=== PATIENT | female | born 1960 | race Two or more races ===

== ENCOUNTER 2024-10-27 14:30 | Outpatient (AMB) | payer MEDICAID, SELFPAY ==
[2024-10-27 15:05] VITALS: BP 120/77; PULSE 80; RESP 18; TEMP 36.6; O2SAT 97; BMI 32.2
--- NOTE | 2024-10-27 15:05 | ORTHONT_ITS ---
Vital signs 10/27/24 15:05 Height 1.57 m Height Method Stated Weight 80.002 kg Weight Measurement Method Standing Scale BMI 32.2 BP 120/77 Blood Pressure Source Automatic Cuff Blood Pressure Location Right Upper Arm Position Sitting Respiration 18 Pulse 80 Pulse Source Monitor Temp 97.9 F Temp Source Temporal Artery Scan Pulse Oximetry (%) 97 Oxygen Delivery Method Room Air Med/Allergies Allergies & Medications Allergies No Known Allergies Allergy (Verified 10/27/24 15:06) Medication Reconciliation No Known Home Medications 10/27/24 [History Confirmed 10/27/24] meloxicam 7.5 mg tablet 7.5 mg PO QDAY #45 tabs 10/27/24 [Rx] Exam Exam Breathing is nonlabored. Patient has a normal mood and affect. Bilateral extremities were evaluated and demonstrates sensation intact to light touch. Palpable pedal pulses are present. No significant edema is present. Bilateral hips were examined. The patient has no pain with log roll of the hips. Internal rotation to 30 degrees and external rotation to 30 degrees is painless. Negative FADIR. Left knee was examined today. The left knee is in reasonable alignment. Range of motion from 0-120 degrees. Knee is stable to varus and valgus as well as AP translation with <5mm. Patient has a negative McMurrays. There is no pain with patellofemoral compression and no crepitus noted. The knee is nontender to palpation. The right knee was also examined. The right knee is in varus alignment. Range of motion from 0-115 degrees. Knee is stable to varus and valgus as well as AP translation with <5mm. Patient has a negative McMurrays. There is no pain with patellofemoral compression and no crepitus noted. The knee is tender to palpation medially. Assessment and Plan Problem List (1) Arthritis of knee, right: Status: Acute (2) Right knee meniscal tear: Status: Acute Plan: Patient is a pleasant 64-year-old female with right knee pain and a right knee meniscal tear. I do need to see the severity of the arthritis. It sounds like the cortisone injections have been working in the past. We will get new x-rays and discuss different treatment options depending on what that shows Advanced Care Planning Discussion Advance care planning discussed with:: patient Office Procedures GNS Level of Care Nursing/Assessment Patient Status: Established Patient Nursing Assessment/Reassesment: Medication Reconciliation, Update PMH in EMR and Vital Signs Coordination of Care: Complex Care and Chronic Disease 1-5, Education Complex Pt/Fam, Consent,records obtained, informed consent, Results/Orders obtained and Staff clarify orders Established Patient Charge Established Patient Point Assignment: 95 Established Patient Point Charge: EP Level 3 (80-115) MA Intake Visit Data Collection New Patient or Established: Established Patient (seen at [facility] within 3 years) Reason for Visit:: RIGHT KNEE PAIN Seen by Clinical Staff ONLY (RN/MA): No Verbal consent obtained for Telemed visit?: No Scroll Saw Operator Required: No PCP or OBGYN visit in last 3 months: Yes Hx Now: No Do You Feel Safe at Home: Yes Authorities Contacted: N/A Questionairres Past Medical History Past Medical History Have you ever been diagnosed with any of the following: Neurological Problems Seizures: No Cardiology Problems Congestive Heart Failure: No Respiratory Problems Chronic Obstructive Pulmonary Disease (COPD): No Smoking: No Smoking Cessation Counseling: No Smoking Exposure: No Stomache/Intestinal Problems Hepatitis: No Obesity: Yes Genital/Urinary Problems Renal Disease: No Kidney Stones: Yes Reproductive Problems Previous Pregnancies: Yes Endocrine Problems Diabetes Mellitus Type 1: No Diabetes Mellitus Type 2: No Other Problems Hospitalization: Yes (surgery) Shingles: No Blood Transfusions: No Blood Transfusion Reaction: No Anesthesia Reactions: No MRSA: No Chicken Pox: No Cancer: No Subjective Visit Visit for: new patient and knee Immunization / Flu Flu Vaccine in the Last 12 Months: No Flu Vaccine Exclusion Criteria: No Exclusion Criteria History of Present Illness Chief complaint: RIGHT KNEE PAIN Patient is a pleasant 64-year-old female with bilateral knee pain. The pain is worse on the right compared to the left. She has tried injections before. They did work for over 4 months. She has also tried ibuprofen. She was told that she has a meniscal tear Personal History Occupation: CAREGIVER Red flag PMH: BMI BMI Counceling provided: Yes Pain Pain level (0-10): 8 Pain duration: ALL DAY Pain location: inside (medial), outside (lateral), anterior and posterior Pain quality: sharp, dull and aching Pain timing: night, increases with activity and stairs Associated signs & symptoms: numbness Ambulatory data Ambulatory device: none Treatments Number of previous injections: 4 Improvement with previous injections: No Improvement with PT: No Improvement with NSAIDS: no Review of Systems Review of Systems: All systems negative unless otherwise noted in HPI.
--- NOTE | 2024-10-27 15:06 | XR_ITS ---
Examination: Bilateral knees 2 views Right lateral knee left lateral knee 2 views. Right axial knee, left axial knee 2 views Technique: Bilateral AP knees standing single view, bilateral PA knees standing, 30 degrees flexion Standing right lateral knee, left 2 views Right axial knee left axial knee 2 views total 6 views Exam date and time: 2024 1415 hrs. Indications: Bilateral knee pain beginning several years ago. Findings: Advanced narrowing medial joint spaces right and left knee, more severe right knee Significant osteoarthritis patellofemoral joints No patellar dislocations No fractures Impression: Advanced narrowing medial joint spaces right and left knee
== END 2024-10-27 15:16 | disposition home or self-care (01) ==
LOC: HODSRG 14:30
PROVIDERS: PCP Physician Assistant; Referring Provider Physician Assistant; Supervising Provider Orthopaedic Surgery Adult Reconstructive Orthopaedic Surgery; Visit Provider Orthopaedic Surgery Adult Reconstructive Orthopaedic Surgery
DX: M17.11 Unilateral primary osteoarthritis, right knee (principal); S83.206A Unspecified tear of unspecified meniscus, current injury, right knee, initial encounter
CPT/HCPCS: 73564; 99213; G0463

== ENCOUNTER 2024-11-17 13:19 | Outpatient (AMB) | payer MEDICAID, SELFPAY ==
--- NOTE | 2024-11-17 13:25 | PD.ORTHCLVIS ---
Vital signs 11/17/24 13:26 Height 1.57 m Height Method Stated Weight 78.103 kg Weight Measurement Method Standing Scale BMI 31.6 BP 127/76 Blood Pressure Source Automatic Cuff Blood Pressure Location Left Upper Arm Position Sitting Respiration 19 Pulse 84 Pulse Source Monitor Temp 97.6 F Temp Source Temporal Artery Scan Pulse Oximetry (%) 96 Oxygen Delivery Method Room Air Med/Allergies Allergies & Medications Allergies No Known Allergies Allergy (Verified 11/17/24 13:26) Medication Reconciliation meloxicam 7.5 mg tablet 7.5 mg PO QDAY #45 tabs 10/27/24 [Rx Confirmed 11/17/24] Exam Exam Breathing is nonlabored. Patient has a normal mood and affect. Bilateral extremities were evaluated and demonstrates sensation intact to light touch. Palpable pedal pulses are present. No significant edema is present. Bilateral hips were examined. The patient has no pain with log roll of the hips. Internal rotation to 30 degrees and external rotation to 30 degrees is painless. Negative FADIR. Left knee was examined today. The left knee is in reasonable alignment. Range of motion from 0-120 degrees. Knee is stable to varus and valgus as well as AP translation with <5mm. Patient has a negative McMurrays. There is no pain with patellofemoral compression and no crepitus noted. The knee is nontender to palpation. The right knee was also examined. The right knee is in varus alignment. Range of motion from 0-115 degrees. Knee is stable to varus and valgus as well as AP translation with <5mm. Patient has a negative McMurrays. There is no pain with patellofemoral compression and no crepitus noted. The knee is tender to palpation medially. Bilateral knee x-rays were reviewed. This demonstrates complete joint space narrowing medially and advanced joint space narrowing of both knees. There are osteophytes present and varus deformity Assessment and Plan Problem List (1) Arthritis of knee, right: Status: Acute (2) Right knee meniscal tear: Status: Acute Plan: Patient is a pleasant 64-year-old female with right knee pain and a right knee meniscal tear. She also has significant arthritis of the right knee. We discussed that the treatment would be a total knee replacement. She is failed cortisone injections in the past and has tried physical therapy. She would like to get hyaluronic acid injection. We told her that insurance usually does not typically cover it. She is working on changing her insurance and she is now Medicare eligible. We will see her back on an as-needed basis Advanced Care Planning Discussion Advance care planning discussed with:: patient Office Procedures GNS Level of Care Nursing/Assessment Patient Status: Established Patient Nursing Assessment/Reassesment: Medication Reconciliation, Update PMH in EMR and Vital Signs Coordination of Care: Complex Care and Chronic Disease 1-5, Education Complex Pt/Fam, Consent,records obtained, informed consent, Results/Orders obtained and Staff clarify orders Established Patient Charge Established Patient Point Assignment: 95 Established Patient Point Charge: EP Level 3 (80-115) MA Intake Visit Data Collection New Patient or Established: Established Patient (seen at [facility] within 3 years) Reason for Visit:: XRAY RESULTS BL KNEE Seen by Clinical Staff ONLY (RN/MA): No Verbal consent obtained for Telemed visit?: No Asset Protection Specialist Required: No PCP or OBGYN visit in last 3 months: Yes Hx Now: No Do You Feel Safe at Home: Yes Authorities Contacted: N/A Questionairres Past Medical History Past Medical History Have you ever been diagnosed with any of the following: Neurological Problems Seizures: No Cardiology Problems Congestive Heart Failure: No Respiratory Problems Chronic Obstructive Pulmonary Disease (COPD): No Smoking: Yes (20 YEARS) Smoking Cessation Counseling: No Smoking Exposure: Yes Stomache/Intestinal Problems Hepatitis: No Obesity: Yes Genital/Urinary Problems Renal Disease: No Kidney Stones: Yes Reproductive Problems Previous Pregnancies: Yes Endocrine Problems Diabetes Mellitus Type 1: No Diabetes Mellitus Type 2: No Other Problems Hospitalization: Yes (surgery) Shingles: No Blood Transfusions: No Blood Transfusion Reaction: No Anesthesia Reactions: No MRSA: No Chicken Pox: No Cancer: No Subjective Visit Visit for: follow up visit, knee (BILATERAL) and x-rays (RESULTS) Immunization / Flu Flu Vaccine in the Last 12 Months: No Flu Vaccine Exclusion Criteria: No Exclusion Criteria History of Present Illness Chief complaint: RIGHT KNEE PAIN Patient is a pleasant 64-year-old female with bilateral knee pain. The pain is worse on the right compared to the left. She has tried injections before. They did work for over 4 months. She has also tried ibuprofen. She was told that she has a meniscal tear. 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
[2024-11-17 13:26] VITALS: BP 127/76; PULSE 84; RESP 19; TEMP 36.4; O2SAT 96; BMI 31.6
== END 2024-11-17 14:09 | disposition home or self-care (01) ==
PROVIDERS: PCP Physician Assistant; Referring Provider Physician Assistant; Supervising Provider Orthopaedic Surgery Adult Reconstructive Orthopaedic Surgery; Visit Provider Orthopaedic Surgery Adult Reconstructive Orthopaedic Surgery
DX: M17.11 Unilateral primary osteoarthritis, right knee (principal); M25.561 Pain in right knee; S83.206D Unspecified tear of unspecified meniscus, current injury, right knee, subsequent encounter; X58.XXXD Exposure to other specified factors, subsequent encounter
CPT/HCPCS: 99213; G0463

== ENCOUNTER 2025-02-04 11:01 | Outpatient (AMB) | payer MEDICARE, MEDICAID, SELFPAY ==
--- NOTE | 2025-02-04 11:27 | PD.ORTHCLVIS ---
Vital signs 02/04/25 11:37 Height 1.57 m Height Method Stated Weight 78.528 kg Weight Measurement Method Standing Scale BMI 31.8 BP 105/65 Blood Pressure Source Automatic Cuff Blood Pressure Location Right Upper Arm Position Sitting Respiration 18 Pulse 80 Pulse Source Monitor Pulse Oximetry (%) 96 Oxygen Delivery Method Room Air Med/Allergies Allergies & Medications Allergies No Known Allergies Allergy (Verified 02/04/25 11:38) Medication Reconciliation meloxicam 7.5 mg tablet 7.5 mg PO QDAY #45 tabs 10/27/24 [Rx Confirmed 02/04/25] Exam Exam Breathing is nonlabored. Patient has a normal mood and affect. Bilateral extremities were evaluated and demonstrates sensation intact to light touch. Palpable pedal pulses are present. No significant edema is present. Bilateral hips were examined. The patient has no pain with log roll of the hips. Internal rotation to 30 degrees and external rotation to 30 degrees is painless. Negative FADIR. Left knee was examined today. The left knee is in reasonable alignment. Range of motion from 0-120 degrees. Knee is stable to varus and valgus as well as AP translation with <5mm. Patient has a negative McMurrays. There is no pain with patellofemoral compression and no crepitus noted. The knee is nontender to palpation. The right knee was also examined. The right knee is in varus alignment. Range of motion from 0-115 degrees. Knee is stable to varus and valgus as well as AP translation with <5mm. Patient has a negative McMurrays. There is no pain with patellofemoral compression and no crepitus noted. The knee is tender to palpation medially. Bilateral knee x-rays were reviewed. This demonstrates complete joint space narrowing medially and advanced joint space narrowing of both knees. There are osteophytes present and varus deformity Assessment and Plan Problem List (1) Arthritis of knee, right: Status: Acute (2) Right knee meniscal tear: Status: Acute Plan: Patient is a pleasant 64-year-old female with right knee pain and a right knee meniscal tear. She also has significant arthritis of the right knee. We discussed that the treatment would be a total knee replacement. She has failed cortisone injections in the past and has tried physical therapy. She has also tried NSAIDS The nature and purpose of the total knee replacement, alternative method(s) of treatment, the material risks involved, and the possibility of complications were fully explained to the patient. The patient does NOT have any of the following contraindications to TKA: - Active infection of the knee joint, OR - Active systemic bacteremia, OR - Active skin infection or open wound at surgical site, OR - Neuropathic arthritis, OR - Severe, rapidly progressive neurological disease, OR - Severe medical condition that makes risks of surgery outweigh the potential benefit The patient was told the most common risks and complications associated with a total knee replacement include, but are not limited to: blood clots in the leg, fatal pulmonary embolism, dislocation of the prosthesis, intraoperative and postoperative fractures of the femur or tibia, infection, failure of the prosthesis or grafting materials, complications from anesthesia, reactions to blood transfusions, postoperative leg length inequality, instability of the knee replacement, nerve damage or injury, vascular injury, delayed wound healing, infection, other injury or even . In addition, there are risks associated with anesthesia given during this operation. Also, the patient was told that after undergoing a total knee replacement there may still be persistent pain or disability. The patient was informed that the success of this operation in part depends upon the mechanical devices which are going to be implanted and that these devices can fail or malfunction, and may need to be repaired or replaced and there are no guarantees as to the longevity of this device or its parts and that it or its parts could fail prematurely. The patient was also notified that during the course of surgery, there may be a need to use bone graft from donors, and that any bone graft used will be carefully screened for communicable diseases, including AIDS, hepatitis, Juan-Creutzfeldt, or other diseases, but despite the screening procedures, there is a small chance that they could contract one of these diseases. Finally, the patient was asked to follow completely and fully with all advice and recommended treatments, and that recovery and ultimate outcome are affected by their compliance with recommended treatment. We discussed the risks, benefits and treatment alternatives, and the patient is interested in proceeding with surgery. We will try to set this up as expeditiously as possible. Advanced Care Planning Discussion Advance care planning discussed with:: patient Office Procedures GNS Level of Care Nursing/Assessment Patient Status: Established Patient Nursing Assessment/Reassesment: Medication Reconciliation, Update PMH in EMR and Vital Signs Coordination of Care: Complex Care and Chronic Disease 1-5, Education Complex Pt/Fam, Consent,records obtained, informed consent, 2-3 Insurance Autorizations needed, Lab and Imaging orders, Results/Orders obtained and Staff clarify orders Established Patient Charge Established Patient Point Assignment: 130 Established Patient Point Charge: EP Level 4 (120-155) MA Intake Visit Data Collection New Patient or Established: Established Patient (seen at [facility] within 3 years) Reason for Visit:: XRAY RESULTS BL KNEE Seen by Clinical Staff ONLY (RN/MA): No Verbal consent obtained for Telemed visit?: No Spraying Machine Operator Required: No PCP or OBGYN visit in last 3 months: Yes Hx Now: No Do You Feel Safe at Home: Yes Authorities Contacted: N/A Questionairres Past Medical History Past Medical History Have you ever been diagnosed with any of the following: Neurological Problems Seizures: No Cardiology Problems Congestive Heart Failure: No Respiratory Problems Chronic Obstructive Pulmonary Disease (COPD): No Smoking: Yes (20 YEARS) Smoking Cessation Counseling: No Smoking Exposure: Yes Stomache/Intestinal Problems Hepatitis: No Obesity: Yes Genital/Urinary Problems Renal Disease: No Kidney Stones: Yes Reproductive Problems Previous Pregnancies: Yes Endocrine Problems Diabetes Mellitus Type 1: No Diabetes Mellitus Type 2: No Other Problems Hospitalization: Yes (surgery) Shingles: No Blood Transfusions: No Blood Transfusion Reaction: No Anesthesia Reactions: No MRSA: No Chicken Pox: No Cancer: No Subjective Visit Visit for: follow up visit, knee (BILATERAL) and x-rays (RESULTS) Immunization / Flu Flu Vaccine in the Last 12 Months: No Flu Vaccine Exclusion Criteria: No Exclusion Criteria History of Present Illness Chief complaint: RIGHT KNEE PAIN Patient is a pleasant 64-year-old female with bilateral knee pain. The pain is worse on the right compared to the left. She has tried injections before. They did work for over 4 months. She has also tried ibuprofen. She was told that she has a meniscal tear. 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
[2025-02-04 11:37] VITALS: BP 105/65; PULSE 80; RESP 18; O2SAT 96; BMI 31.8
== END 2025-02-04 11:53 | disposition home or self-care (01) ==
PROVIDERS: PCP Physician Assistant; Referring Provider Physician Assistant; Supervising Provider Orthopaedic Surgery Adult Reconstructive Orthopaedic Surgery; Visit Provider Orthopaedic Surgery Adult Reconstructive Orthopaedic Surgery
DX: M17.11 Unilateral primary osteoarthritis, right knee (principal); S83.206D Unspecified tear of unspecified meniscus, current injury, right knee, subsequent encounter; X58.XXXD Exposure to other specified factors, subsequent encounter; M25.561 Pain in right knee
CPT/HCPCS: 99214; G0463

== ENCOUNTER → 2025-03-06 | Outpatient (CLI) | payer MEDICARE, MEDICAID, SELFPAY ==
--- NOTE | 2025-03-06 08:00 | XR_ITS ---
Examination: MRI left hand, without contrast Date and time of exam: March 06, 2025, 0911 hrs. Indications: Patient fell 2014 with injury to the hand, persistent and pain including especially the thumb Technique: Multiple axial sagittal and coronal images of the left hand have been obtained with the Siemens high-resolution 1.5 Shira MRI scanner. Images obtained include T2-weighted fat-suppressed sagittal sections, TR 3500, TE 46, T2 weighted coronal fat suppressed images, TR 3050, TE 84, T2-weighted transverse fat suppressed images, TR 3260, TE 63, proton density transverse images, TR 4720 TE 46, and T1 weighted coronal images, TR 560, TE 13. Findings: Intact triangular fibrocartilage. No bone contusion, marrow edema or occult fracture. No avascular necrosis. Thickened ulnar collateral ligament of the thumb but the ligament is intact Mild osteoarthritis first carpometacarpal joint. Flexor tendons intact, no annular hans tear Normal median nerve in the wrist Extensor tendons intact no tendinitis No ganglion cyst Impression: Thickened ulnar collateral ligament of the thumb but the ligament is intact, strain appearance No bone contusion, marrow edema or occult fracture Mild osteoarthritis first carpometacarpal joint Negative for ganglion cyst Plain films of the hand would be helpful for correlation
== END | disposition home or self-care (01) ==
LOC: SMRI 08:08
PROVIDERS: PCP Nurse Practitioner Family; Referring Provider Nurse Practitioner Family; Visit Provider Nurse Practitioner Family
DX: M79.645 Pain in left finger(s) (principal); M18.12 Unilateral primary osteoarthritis of first carpometacarpal joint, left hand; S69.92XS Unspecified injury of left wrist, hand and finger(s), sequela; W19.XXXS Unspecified fall, sequela
CPT/HCPCS: 73218

== ENCOUNTER 2025-03-18 12:47 | Outpatient (AMB) | payer MEDICARE, MEDICAID, SELFPAY ==
[2025-03-18 13:02] VITALS: BP 113/72; PULSE 91; RESP 18; TEMP 36.7; O2SAT 95; BMI 31.4
--- NOTE | 2025-03-18 13:02 | ORTHONT_ITS ---
Vital signs 03/18/25 13:02 Height 1.57 m Height Method Measured Weight 77.621 kg Weight Measurement Method Standing Scale BMI 31.4 BP 113/72 Blood Pressure Source Automatic Cuff Blood Pressure Location Left Upper Arm Position Sitting Respiration 18 Pulse 91 Pulse Source Monitor Temp 98.1 F Temp Source Temporal Artery Scan Pulse Oximetry (%) 95 Oxygen Delivery Method Room Air Med/Allergies Allergies & Medications Allergies No Known Allergies Allergy (Verified 03/18/25 13:03) Medication Reconciliation meloxicam 7.5 mg tablet 7.5 mg PO QDAY #45 tabs 10/27/24 [Rx Confirmed 03/18/25] Exam Exam Breathing is nonlabored. Patient has a normal mood and affect. Bilateral extremities were evaluated and demonstrates sensation intact to light touch. Palpable pedal pulses are present. No significant edema is present. Bilateral hips were examined. The patient has no pain with log roll of the hips. Internal rotation to 30 degrees and external rotation to 30 degrees is painless. Negative FADIR. Left knee was examined today. The left knee is in reasonable alignment. Range of motion from 0-120 degrees. Knee is stable to varus and valgus as well as AP translation with <5mm. Patient has a negative McMurrays. There is no pain with patellofemoral compression and no crepitus noted. The knee is nontender to palpation. The right knee was also examined. The right knee is in varus alignment. Range of motion from 0-115 degrees. Knee is stable to varus and valgus as well as AP translation with <5mm. Patient has a negative McMurrays. There is no pain with patellofemoral compression and no crepitus noted. The knee is tender to palpation medially. Bilateral knee x-rays were reviewed. This demonstrates complete joint space na rrowing medially and advanced joint space narrowing of both knees. There are osteophytes present and varus deformity Assessment and Plan Problem List (1) Arthritis of knee, right: Status: Acute (2) Right knee meniscal tear: Status: Acute Plan: Patient is a pleasant 64-year-old female with right knee pain and a right knee meniscal tear. She also has significant arthritis of the right knee. We discussed that the treatment would be a total knee replacement. She has failed cortisone injections in the past and has tried physical therapy. She has also tried NSAIDS The nature and purpose of the total knee replacement, alternative method(s) of treatment, the material risks involved, and the possibility of complications were fully explained to the patient. The patient does NOT have any of the following contraindications to TKA: - Active infection of the knee joint, OR - Active systemic bacteremia, OR - Active skin infection or open wound at surgical site, OR - Neuropathic arthritis, OR - Severe, rapidly progressive neurological disease, OR - Severe medical condition that makes risks of surgery outweigh the potential benefit The patient was told the most common risks and complications associated with a total knee replacement include, but are not limited to: blood clots in the leg, fatal pulmonary embolism, dislocation of the prosthesis, intraoperative and postoperative fractures of the femur or tibia, infection, failure of the prosthesis or grafting materials, complications from anesthesia, reactions to blood transfusions, postoperative leg length inequality, instability of the knee replacement, nerve damage or injury, vascular injury, delayed wound healing, infection, other injury or even . In addition, there are risks associated with anesthesia given during this operation. Also, the patient was told that after undergoing a total knee replacement there may still be persistent pain or disability. The patient was informed that the success of this operation in part depends upon the mechanical devices which are going to be implanted and that these devices can fail or malfunction, and may need to be repaired or replaced and there are no guarantees as to the longevity of this device or its parts and that it or its parts could fail prematurely. The patient was also notified that during the course of surgery, there may be a need to use bone graft from donors, and that any bone graft used will be carefully screened for communicable diseases, including AIDS, hepatitis, Juan-Creutzfeldt, or other diseases, but despite the screening procedures, there is a small chance that they could contract one of these diseases. Finally, the patient was asked to follow completely and fully with all advice and recommended treatments, and that recovery and ultimate outcome are affected by their compliance with recommended treatment. We discussed the risks, benefits and treatment alternatives, and the patient is interested in proceeding with surgery. We will try to set this up as expeditiously as possible. Advanced Care Planning Discussion Advance care planning discussed with:: patient Office Procedures GNS Level of Care Nursing/Assessment Patient Status: Established Patient Nursing Assessment/Reassesment: Medication Reconciliation, Update PMH in EMR and Vital Signs Coordination of Care: Complex Care and Chronic Disease 1-5, Education Complex Pt/Fam, Consent,records obtained, informed consent, Results/Orders obtained and Staff clarify orders Established Patient Charge Established Patient Point Assignment: 95 Established Patient Point Charge: EP Level 3 (80-115) MA Intake Visit Data Collection New Patient or Established: Established Patient (seen at [facility] within 3 years) Reason for Visit:: PRE OP RIGHT TKA/MEDICAL CLEARANCE Seen by Clinical Staff ONLY (RN/MA): No Verbal consent obtained for Telemed visit?: No Livestock Yard Supervisor Required: No PCP or OBGYN visit in last 3 months: Yes Hx Now: No Do You Feel Safe at Home: Yes Authorities Contacted: N/A Questionairres Past Medical History Past Medical History Have you ever been diagnosed with any of the following: Neurological Problems Seizures: No Cardiology Problems Congestive Heart Failure: No Respiratory Problems Chronic Obstructive Pulmonary Disease (COPD): No Smoking: Yes (20 YEARS) Smoking Cessation Counseling: No Smoking Exposure: Yes Stomache/Intestinal Problems Hepatitis: No Obesity: Yes Genital/Urinary Problems Renal Disease: No Kidney Stones: Yes Reproductive Problems Previous Pregnancies: Yes Endocrine Problems Diabetes Mellitus Type 1: No Diabetes Mellitus Type 2: No Other Problems Hospitalization: Yes (surgery) Shingles: No Blood Transfusions: No Blood Transfusion Reaction: No Anesthesia Reactions: No MRSA: No Chicken Pox: No Cancer: No Subjective Visit Visit for: follow up visit and knee Immunization / Flu Flu Vaccine in the Last 12 Months: No Flu Vaccine Exclusion Criteria: No Exclusion Criteria History of Present Illness Chief complaint: RIGHT KNEE PAIN PRE OP RIGHT TKA/MEDICAL CLEARANCE Patient is a pleasant 64-year-old female with bilateral knee pain. The pain is worse on the right compared to the left. She has tried injections before. They did work for over 4 months. She has also tried ibuprofen. She was told that she has a meniscal tear. She had a recent right knee injection but it did not work for more than a month Personal History Occupation: CAREGIVER Red flag PMH: smoker BMI Counceling provided: Yes Pain Pain level (0-10): 0 Pain duration: ALL DAY Pain location: inside (medial), outside (lateral), anterior and posterior Pain quality: sharp, dull and aching Pain timing: night, increases with activity and stairs Associated signs & symptoms: numbness Ambulatory data Ambulatory device: walker and none Treatments Number of previous injections: 2 (2 WEEKS AGO WITH PCP) Improvement with previous injections: Yes Improvement with PT: No Improvement with NSAIDS: no Review of Systems Review of Systems: All systems negative unless otherwise noted in HPI.
== END 2025-03-18 13:23 | disposition home or self-care (01) ==
LOC: HODSRG 12:47
PROVIDERS: PCP Nurse Practitioner Family; Referring Provider Nurse Practitioner Family; Supervising Provider Orthopaedic Surgery Adult Reconstructive Orthopaedic Surgery; Visit Provider Orthopaedic Surgery Adult Reconstructive Orthopaedic Surgery
DX: M17.11 Unilateral primary osteoarthritis, right knee (principal); S83.206D Unspecified tear of unspecified meniscus, current injury, right knee, subsequent encounter; X58.XXXD Exposure to other specified factors, subsequent encounter; M25.561 Pain in right knee; E66.9 Obesity, unspecified; Z68.31 Body mass index [BMI] 31.0-31.9, adult
CPT/HCPCS: 99213; G0463

== ENCOUNTER → 2025-03-22 | Outpatient (CLI) | payer MEDICARE, MEDICAID, SELFPAY ==
--- NOTE | 2025-03-22 | XR_ITS ---
Examination: CT right lower extremity, without contrast. 2-D sagittal reconstructions. 2-D coronal reconstructions. 3-D reconstructions. Date and time of exam:March 22, 2025 1221 hours INDICATIONS: Diagnosis unilateral right knee osteoarthritis, knee pain 18 months CTDI: vol (mGy):9.49 DLP: (mGycm):657 Technique: Multiple 1.25 mm axial sections of the right lower extremity without intravenous contrast have been obtained. 2-D sagittal and coronal reconstructions have been obtained. 3-D reconstructions have been obtained. Low dose protocols were performed. One or more of the following dose reduction techniques were used; automated exposure control, adjustment of the mA and/or KV according to patient size, use of iterative reconstruction technique. Findings: Mild narrowing right hip joint No hip fracture or dislocation No avascular necrosis Advanced narrowing medial joint space right knee Significant osteoarthritis lateral patellofemoral joints No fracture IMPRESSION: Advanced narrowing medial joint space right knee
== END | disposition home or self-care (01) ==
PROVIDERS: PCP Nurse Practitioner Family; Referring Provider Orthopaedic Surgery Adult Reconstructive Orthopaedic Surgery; Visit Provider Orthopaedic Surgery Adult Reconstructive Orthopaedic Surgery
DX: M25.861 Other specified joint disorders, right knee (principal)
CPT/HCPCS: 73700

== ENCOUNTER 2025-03-26 15:53 | Observation (INO) | payer MEDICARE, MEDICAID, SELFPAY ==
[2025-03-23 09:16] VITALS: BMI 31.6
[2025-03-23 10:22] LABS: Basophils # (Auto) 0.0 Thou/mm3 (0.0-0.2); Basophils % (Auto) 0 % (0-2.5); Eosinophils # (Auto) 0.2 Thou/mm3 (0.0-0.5); Eosinophils % (Auto) 1 % (0-10); Hematocrit 43.9 % (36.0-46.0); Hemoglobin 15.2 g/dL (12.0-16.0); Immature Granulocytes Auto 0.05 Thou/mm3 (0.00-0.00); Lymphocytes # (Auto) 4.3 Thou/mm3 (1.0-4.8); Lymphocytes % (Auto) 33 % (10-50); Mean Corpuscular HGB Conc 34.6 g/dl (31.0-37.0); Mean Corpuscular Hemoglobin 33.9 pg (25.0-35.0); Mean Corpuscular Volume 98 fL (80-100); Monocytes # (Auto) 1.0 Thou/mm3 (0.0-0.8); Monocytes % (Auto) 8 % (0-12); Neutrophils # (Auto) 7.4 Thou/mm3 (1.8-7.7); Neutrophils % (Auto) 57 % (37-80); Nucleated Red Blood Cell # 0.00 Thou/mm3 (0.00-0.00); Nucleated Red Blood Cell % 0 /100 WBC (0); Platelet Count 443 Thou/mm3 (140-440); RDW Standard Deviation 47.3 fL (36.4-46.3); Red Blood Count 4.49 Miln/mm3 (4.00-5.20); White Blood Count 13.0 Thou/mm3 (3.6-11.0)
[2025-03-23 10:32] LABS: Alanine Aminotransferase 30 U/L (10-49); Albumin, Serum 4.2 gm/dL (3.4-4.8); Albumin/Globulin Ratio 1.6 (1.2-2.2); Alkaline Phosphatase 116 U/L (46-116); Anion Gap 5 (7-16); Aspartate Amino Transferase 28 U/L (0-34); BUN/Creatinine Ratio 11 Ratio (12-20); Bilirubin,Total 0.2 mg/dL (0.3-1.2); Blood Urea Nitrogen 8 mg/dL (9-23); Calcium 9.0 mg/dL (8.3-10.6); Calcium (Corrected) 9.0 mg/dL (8.5-10.1); Carbon Dioxide 28.6 mMol/L (20.0-31.0); Chloride 109 mMol/L (98-107); Creatinine (Component) 0.7 mg/dL (0.6-1.3); Estimated Creatinine Clearance 77.7 mL/min (>60); Globulin 2.6 gm/dL (2.3-3.5); Glucose 78 mg/dL (74-106); Osmolality,Calculated 282 (275-295); Potassium 4.1 mMol/L (3.4-5.1); Sodium 143 mMol/L (136-145); Total Protein 6.8 gm/dL (5.7-8.2); eGFR > 60 See Note
[2025-03-23 10:33] LABS: INR 1.0 (0.9-1.3); Partial Thromboplastin Time 30.5 Seconds (22.0-36.0); Prothrombin Time 10.7 Seconds (9.0-12.2)
--- NOTE | 2025-03-24 07:26 | SUR.PREOP ---
WBC 13, Dr Pérez notified and Ok to proceed with surgery.
[2025-03-26] VITALS (22 sets, daily range): BP systolic 107–154; BP diastolic 63–101; PULSE 66–83; RESP 12–20; TEMP 36.1–36.9; O2SAT 94–98; BMI 31.0
[2025-03-26] MEDS: MELOXICAM 7.5 MG TABLET PO (07:30)
[2025-03-26] MEDS: PREGABALIN 75 MG CAPSULE PO (07:30)
[2025-03-26] MEDS: ACETAMINOPHEN 325 MG TABLET 650 MG PO (07:30)
--- NOTE | 2025-03-26 07:45 | SUR.PREOP ---
Patient expressed gratitude for prayer before their procedure.
--- NOTE | 2025-03-26 12:34 | ESOP_ITS ---
Date of Procedure 03/26/25 Pre Op Diagnosis right knee osteoarthritis Post Op Diagnosis right knee osteoarthritis Procedure right total knee replacement daniele Findings full thickness cartilage loss and osteophytes Procedure Description Indication: The patient is a 64 year old who has a long history of left knee pain. X-rays show degenerative arthritis involving the knee. Over the past several years the patient has had increasing pain, progressive limitation in function. He has failed conservative measures including activity modification, physical therapy, injections, anti-inflammatories, and assistive devices. After a lengthy discussion of the risks and benefits, the patient presents now for total knee replacement. The nature and purpose of the total knee replacement, alternative method(s) of treatment, the material risks involved, and the possibility of complications were fully explained to the patient. The patient was told the most common risks and complications associated with a total knee replacement include, but are not limited to blood clots in the leg, fatal pulmonary embolism, dislocation of the prosthesis, intraoperative and postoperative fractures of the femur or tibia, infection, failure of the prosthesis or grafting materials, complications from anesthesia, reactions to blood transfusions, postoperative leg length inequality, instability of the knee replacement, nerve damage or injury, vascular injury, delayed wound healing, infections, other injury or even . In addition, there are risks associated with anesthesia given during this operation, temporary or permanent numbness on the skin lateral to the incision can be a complication unique to total knee surgery, and kneeling can be painful after knee replacement surgery. Also, the patient was told that after undergoing a total knee replacement there may still be pain or disability. We discussed with the patient that we will be using a robot-assisted technology. We discussed that there is a possibility of converting to manual instrumentation. The patient was informed that the success of this operation in part depends upon the mechanical devices which are going to be implanted and that these devices can fail or malfunction, and may need to be repaired or replaced and there are no guarantees as to the longevity of this device or its part and that it or its parts could fail prematurely. Finally, the patient was asked to follow completely and fully with all advice and recommended treatments, and that recovery and ultimate outcome are affected by their compliance with recommended treatment. Surgical technique: Patient was marked and consented in the pre-operative area. The patient was brought to the operating room and placed on the operating table in a supine position. Prior to positioning, a timeout procedure was performed between the surgeon, the anesthesiologist, and the nursing staff where the patient and the operative side were identified and confirmed. After adequate general anesthetic was obtained, the left lower extremity was prepped and draped in the usual sterile fashion. A weight based dose of Cefazolin were administered within 1 hour prior to incision. The robot was preregistered and calirated before the incision. The extremity was exsanguinated with an esmarch badge and tourniquet inflated to 250mmHg. A midline incision was made. A median parapatellar arthrotomy was made. The patella was subluxed laterally. A medial release was performed to expose the medial tibia. His femoral and tibial pins were placed through an intra incisional manner for both cases. Every effort was made to ensure that the distalmost aspect of the pin was hung in the second cortex. The arrays were then tightened several times to ensure that it was fixed for the remainder of the case. Both femoral and tibial checkpoints were then placed. We then went through the registration process of the bone. We then assessed the knee deformity and attempted to correct it. We also used the robot to aid in judging laxity in both extension and flexion. Final based on laxity and alignment we changed the preoperative assessment to obtain proper proper implant positioning and to correct deformity. Attention was then placed to the tibia. We made a tibial cut using the robot ensuring that both the MCL and the patella tendon were protected with retractors. We then went to the femur and made the posterior cut followed by the anterior cut and the anterior chamfer. The bone was then removed and we made a distal femur cut and a posterior chamfer cut. We verified all cuts. A trial reduction was performed with a size 3 femoral component and a size 2 keeled tibial component. The patella tracked centrally, and no lateral retinacular release was necessary. The trial implants were removed. The arrays, pins, and checkpoints were all removed. We performed a verification that all pins were removed. The cut bone surfaces were lavaged. A size 3 left femoral component, a size 2 keeled tibial component were impacted into position. The knee was felt to be well balanced in the sagittal and coronal plane. The final [2x12] mm cruciate- substituting articular insert was impacted into the tibial tray. The knee was brought out to full extension, flexed up to 120 degrees. It was stable to varus and valgus stress and appropriately balanced in flexion and extension. The wounds were copiously irrigated following deflation of tourniquet. The medial retinaculum was reapproximated with #1 vicryl and quill. The subcutaneous tissues were closed with 0 and 2-0 interrupted Vicryl. The skin was closed with 3-0 Monofilament V loc suture. A sterile dressing was applied. The patient was transferred to a bed and brought to recovery in stable condition. The patient tolerated the procedure well. There were no intraoperative complications. Sponge and needle counts were correct times 2. As the attending surgeon, Guanako corbin I was present and performed the entire operation. Grafts/Implants Size 3 CR Femur Size 2 Tibia 10mm poly CS Anesthesia spinal Drains none Implants liane Pathology / specimen None Pathology comment: none Estimated Blood Loss 150 Condition Stable Disposition same day Surgeon Gurinder Pérez MD Surgical Staff Operation Date: 03/26/25 10:45 Case Staff Anesthesiologist: Yousif Beebe RN First Assistant: Mariza Benavides
--- NOTE | 2025-03-26 12:45 | XR_ITS ---
Examination: Right knee 2 views Technique one AP lateral right knee 2 views Date and time: April 05, 2025 1412 hours INDICATIONS: Postop knee replacement FINDINGS: Total right knee arthroplasty. Satisfactory alignment No fracture IMPRESSION: Total right knee arthroplasty with satisfactory alignment
--- NOTE | 2025-03-26 13:02 | SUR.PHASEI ---
1302 Patient arrived to recovery resting comfortably in [facility], on oxygen 10L via oxy mask with a nasal airway in place, breathing unlabored, vital signs stable, dressing intact to right knee; prineo, telfa, abd, webril roll, brandon wraps, no bleeding noted, post spinal anesthesia assessment via ice; patient has dermatome at S2-perineum, complete, bilateral dorsalis pedis pulses present when palpated, patient has good circulation to right lower extremity; skin color normal for patient and warm to touch, report received from Dr. Beebe and Linda BARROW
[2025-03-26] MEDS: HYDROmorphone INJ 2 MG/ML VIAL 0.4 MG IVP ×4 (13:13→13:42)
[2025-03-26] MEDS: ACETAMINOPHEN IVPB 1,000 MG/100 ML VIAL 250 MG IV (13:23)
--- NOTE | 2025-03-26 14:19 | SUR.PHASEII ---
1419 falling asleep and oxygen level decreasing, 90-92% on room air, oxygen via nasal cannula initiated, oxygen level quickly increased to 95-97% on 4L via nasal cannula, will monitor
--- NOTE | 2025-03-26 15:30 | SUR.PHASEII ---
[address] Pérez patient continues to be to require oxygen and desires to sleep, shared she did not sleep well last night, MD states he would keep patient for overnight stay, MD will place order in EMR
--- NOTE | 2025-03-26 15:40 | SUR.PHASEII ---
1540 patients daughter at bedside with patient
--- NOTE | 2025-03-26 16:38 | SUR.PHASEII ---
report from nurse ayana. vss. no c/o nausea or pain. son at bedsied. tolerating po fluids. dtessing remains cdi. good cms noted.
--- NOTE | 2025-03-26 16:38 | SUR.PHASEII ---
1638 Report given to Raine BARROW, patient resting comfortably in [facility], on oxygen 4L via nasal cannula, breathing unlabored, vital signs stable, denies pain, dressing intact; no bleeding noted, drinking fluids; denies nausea, patients son at bedside.
--- NOTE | 2025-03-26 17:49 | SUR.PHASEII ---
pt sitting up in [facility] tolerating regular dinner. vss. dressing cdi. good cms noted ble.
--- NOTE | 2025-03-26 18:20 | SUR.PHASEII ---
report called to jaimie on ms. transported to room via gurney. vss. breathing even and unlabored. dressing remains cdi. tolerated regular dinner. family made aware of room number by patient. good cms noted. ppp
[2025-03-26] MEDS: KETOROLAC INJ 30 MG/ML VIAL 15 MG IVP (19:52)
[2025-03-26] MEDS: ASPIRIN EC 81 MG TABEC PO (21:45)
[2025-03-26] MEDS: ACETAMINOPHEN 500 MG TABLET 1000 MG PO (21:45)
[2025-03-26] MEDS: oxyCODONE HCL 5 MG IR TAB PO (23:36)
[2025-03-27] VITALS: BP 137/61; PULSE 61; RESP 18; TEMP 36.1; O2SAT 96
[2025-03-27] MEDS: ACETAMINOPHEN 500 MG TABLET 1000 MG PO ×2 (00:54→12:05)
[2025-03-27] MEDS: KETOROLAC INJ 30 MG/ML VIAL 15 MG IVP (01:59)
[2025-03-27 04:00] VITALS: BP 116/59; PULSE 68; RESP 18; TEMP 36.4; O2SAT 97
[2025-03-27] MEDS: oxyCODONE HCL 5 MG IR TAB PO (05:48)
[2025-03-27 07:31] VITALS: BP 90/50; PULSE 69; RESP 18; TEMP 36.4; O2SAT 97
[2025-03-27] MEDS: ASPIRIN EC 81 MG TABEC PO (09:21)
[2025-03-27] MEDS: PANTOPRAZOLE 40 MG TABLET PO (09:59)
[2025-03-27 12:00] VITALS: BP 124/65; PULSE 86; RESP 18; TEMP 36.4; O2SAT 97
[2025-03-27] MEDS: oxyCODONE HCL 5 MG IR TAB 10 MG PO (13:56)
[2025-03-27 15:36] VITALS: BP 145/57; PULSE 84; RESP 18; TEMP 36.4; O2SAT 97
== END 2025-03-27 15:26 | disposition home or self-care (01) ==
LOC: S2EX 16:44 → S1WX 16:51 → S3SX 18:35
PROVIDERS: Anesthesiology; Admitting Provider Orthopaedic Surgery Adult Reconstructive Orthopaedic Surgery; PCP Nurse Practitioner Family; Referring Provider Orthopaedic Surgery Adult Reconstructive Orthopaedic Surgery; Visit Provider Orthopaedic Surgery Adult Reconstructive Orthopaedic Surgery
PROC: (CPT 27447; principal; 2025-03-26 10:45)
DX: M17.11 Unilateral primary osteoarthritis, right knee (principal); M25.762 Osteophyte, left knee
CPT/HCPCS: 27447; 20985; 36415; 73560; 80053; 85025; 85610; 85730; 87081; 96365; 96375; 96376; 97163; A4217; C1713; C1776; G0378; J0131; J0690; J1100; J1171; J1885; J2250; J2405; J2470; J2704; J2795; J3010; J3490; J7999; A4648; A4649; A9270

== ENCOUNTER 2025-04-09 11:05 | Outpatient (AMB) | payer MEDICARE, MEDICAID, SELFPAY ==
--- NOTE | 2025-04-09 11:27 | ORTHONT_ITS ---
Vital signs 04/09/25 11:28 Height 1.57 m Height Method Measured Weight 76.742 kg Weight Measurement Method Standing Scale BMI 31.1 BP 130/88 H Blood Pressure Source Automatic Cuff Blood Pressure Location Left Upper Arm Position Sitting Respiration 18 Pulse 76 Pulse Source Monitor Temp 97.9 F Temp Source Temporal Artery Scan Pulse Oximetry (%) 98 Oxygen Delivery Method Room Air Med/Allergies Allergies & Medications Allergies No Known Allergies Allergy (Verified 04/09/25 11:30) Medication Reconciliation multivitamin (Daily Multi-Vitamin tablet) 1 tab PO QAM 03/23/25 [History Confirm ed 04/09/25] semaglutide (weight loss) 1.7 mg/0.75 mL subcutaneous pen injector (Wegovy) 1.7 mg subcut QWEEK 03/23/25 [History Confirmed 04/09/25] acetaminophen 500 mg tablet (Acetaminophen Extra Strength) 1,000 mg (2 x 500 mg) PO Q6H PRN pain #90 tabs 03/26/25 [Rx Confirmed 04/09/25] aspirin 81 mg tablet,delayed release 81 mg PO BID #60 tabs 03/26/25 [Rx Confirmed 04/09/25] doxycycline hyclate 100 mg tablet 100 mg PO BID #14 tabs 03/26/25 [Rx Confirmed 04/09/25] gabapentin 300 mg capsule 300 mg PO .qhs #30 caps 03/26/25 [Rx Confirmed 04/09/25] sennosides 8.6 mg-docusate sodium 50 mg tablet (Senna-S) 1 tab-cap PO QDAY #30 tabs 03/26/25 [Rx Confirmed 04/09/25] cyclobenzaprine 5 mg tablet 5 mg PO TID PRN muscle spasm #30 tabs 04/09/25 [Rx] oxycodone 5 mg tablet 5 mg PO Q6H PRN pain #28 tabs 04/09/25 [Rx] Exam Exam Breathing is nonlabored. Patient has a normal mood and affect. Bilateral extremities were evaluated and demonstrates sensation intact to light touch. Palpable pedal pulses are present. No significant edema is present. Bilateral hips were examined. The patient has no pain with log roll of the hips. Internal rotation to 30 degrees and external rotation to 30 degrees is painless. Negative FADIR. Left knee was examined today. The left knee is in reasonable alignment. Range of motion from 0-120 degrees. Knee is stable to varus and valgus as well as AP translation with <5mm. Patient has a negative McMurrays. There is no pain with patellofemoral compression and no crepitus noted. The knee is nontender to palp ation. The right knee incision is c/d/i Assessment and Plan Problem List (1) Arthritis of knee, right: Status: Acute (2) Right knee meniscal tear: Status: Acute Plan: Patient is a pleasant 64-year-old female with right knee pain and she status post right total knee replacement. We will see her back in approximately 4 weeks. We will start her with outpatient therapy. Advanced Care Planning Discussion Advance care planning discussed with:: patient Office Procedures GNS Level of Care Nursing/Assessment Patient Status: Established Patient Nursing Assessment/Reassesment: Medication Reconciliation, Orthostatic Vitals, Update PMH in EMR and Vital Signs Coordination of Care: Complex Care and Chronic Disease 1-5, Education Complex Pt/Fam, Consent,records obtained, informed consent, Results/Orders obtained and Staff clarify orders Established Patient Charge Established Patient Point Assignment: 105 Established Patient Point Charge: EP Level 3 (80-115) MA Intake Visit Data Collection New Patient or Established: Established Patient (seen at [facility] within 3 years) Reason for Visit:: 2 WEEK POST OP RT TKA Seen by Clinical Staff ONLY (RN/MA): No Verbal consent obtained for Telemed visit?: No Operations And Intelligence Assistant Required: No PCP or OBGYN visit in last 3 months: Yes Hx Now: No Do You Feel Safe at Home: Yes Authorities Contacted: N/A Questionairres Past Medical History Past Medical History Have you ever been diagnosed with any of the following: Neurological Problems Seizures: No Cardiology Problems Congestive Heart Failure: No Varicose Veins: Yes Respiratory Problems Chronic Obstructive Pulmonary Disease (COPD): No Smoking: Yes (20 YEARS) Smoking Cessation Counseling: No Smoking Exposure: Yes Stomache/Intestinal Problems Hepatitis: No Obesity: Yes Genital/Urinary Problems Renal Disease: No Kidney Stones: No Reproductive Problems Previous Pregnancies: Yes Musculoskeletal Problems Arthritis: Yes Endocrine Problems Diabetes Mellitus Type 1: No Diabetes Mellitus Type 2: No Other Problems Hospitalization: Yes (surgery) Shingles: No Blood Transfusions: No Blood Transfusion Reaction: No Anesthesia Reactions: No MRSA: No Chicken Pox: No Cancer: No Subjective Visit Visit for: follow up visit, post op #1 and knee Immunization / Flu Flu Vaccine in the Last 12 Months: No Flu Vaccine Exclusion Criteria: No Exclusion Criteria History of Present Illness Chief complaint: 2 WEEK POST OP RIGHT TKA Patient is a pleasant 64-year-old female with bilateral knee pain. 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
[2025-04-09 11:28] VITALS: BP 130/88; PULSE 76; RESP 18; TEMP 36.6; O2SAT 98; BMI 31.1
== END 2025-04-09 11:47 | disposition home or self-care (01) ==
PROVIDERS: PCP Nurse Practitioner Family; Referring Provider Nurse Practitioner Family; Supervising Provider Orthopaedic Surgery Adult Reconstructive Orthopaedic Surgery; Visit Provider Orthopaedic Surgery Adult Reconstructive Orthopaedic Surgery
DX: M17.11 Unilateral primary osteoarthritis, right knee (principal); S83.206D Unspecified tear of unspecified meniscus, current injury, right knee, subsequent encounter; X58.XXXD Exposure to other specified factors, subsequent encounter; Z96.651 Presence of right artificial knee joint
CPT/HCPCS: 99213; G0463

== ENCOUNTER 2025-05-14 09:41 | Outpatient (AMB) | payer MEDICARE, MEDICAID, SELFPAY ==
--- NOTE | 2025-05-14 10:28 | ORTHONT_ITS ---
Vital signs 05/14/25 10:29 Height 1.57 m Height Method Stated Weight 76.204 kg Weight Measurement Method Standing Scale BMI 30.9 BP 124/84 Blood Pressure Source Automatic Cuff Blood Pressure Location Left Upper Arm Position Sitting Respiration 18 Pulse 95 Pulse Source Monitor Temp 97.9 F Temp Source Temporal Artery Scan Pulse Oximetry (%) 98 Oxygen Delivery Method Room Air Med/Allergies Allergies & Medications Allergies No Known Allergies Allergy (Verified 05/14/25 10:32) Medication Reconciliation multivitamin (Daily Multi-Vitamin tablet) 1 tab PO QAM 03/23/25 [History Confirmed 05/14/25] semaglutide (weight loss) 1.7 mg/0.75 mL subcutaneous pen injector (Wegovy) 1.7 mg subcut QWEEK 03/23/25 [History Confirmed 05/14/25] acetaminophen 500 mg tablet (Acetaminophen Extra Strength) 1,000 mg (2 x 500 mg) PO Q6H PRN pain #90 tabs 03/26/25 [Rx Confirmed 05/14/25] aspirin 81 mg tablet,delayed release 81 mg PO BID #60 tabs 03/26/25 [Rx Confirmed 05/14/25] doxycycline hyclate 100 mg tablet 100 mg PO BID #14 tabs 03/26/25 [Rx Confirmed 05/14/25] gabapentin 300 mg capsule 300 mg PO .qhs #30 caps 03/26/25 [Rx Confirmed 05/14/25] sennosides 8.6 mg-docusate sodium 50 mg tablet (Senna-S) 1 tab-cap PO QDAY #30 tabs 03/26/25 [Rx Confirmed 05/14/25] cyclobenzaprine 5 mg tablet 5 mg PO TID PRN muscle spasm #30 tabs 04/09/25 [Rx Confirmed 05/14/25] oxycodone 5 mg tablet 5 mg PO Q6H PRN pain #28 tabs 04/09/25 [Rx Confirmed 05/14/25] Exam Exam Breathing is nonlabored. Patient has a normal mood and affect. Bilateral extremities were evaluated and demonstrates sensation intact to light touch. Palpable pedal pulses are present. No significant edema is present. Bilateral hips were examined. The patient has no pain with log roll of the hips. Internal rotation to 30 degrees and external rotation to 30 degrees is painless. Negative FADIR. Left knee was examined today. The left knee is in reasonable alignment. Range of motion from 0-120 degrees. Knee is stable to varus and valgus as well as AP translation with <5mm. Patient has a negative Mc[place]rays. There is no pain with patellofemoral compression and no crepitus noted. The knee is nontender to palpation. The right knee incision is c/d/i. ROM is 0-105 Assessment and Plan Problem List (1) Arthritis of knee, right: Status: Acute (2) Right knee meniscal tear: Status: Acute Plan: Patient is a pleasant 64-year-old female with right knee pain and she status post right total knee replacement. We will see her back in approximately 6 weeks. We will start her with outpatient therapy. Advanced Care Planning Discussion Advance care planning discussed with:: patient Office Procedures GNS Level of Care Nursing/Assessment Patient Status: Established Patient Nursing Assessment/Reassesment: Medication Reconciliation, Update PMH in EMR and Vital Signs Coordination of Care: Complex Care and Chronic Disease 1-5, Education Complex Pt/Fam, Consent,records obtained, informed consent, Results/Orders obtained and Staff clarify orders Established Patient Charge Established Patient Point Assignment: 95 Established Patient Point Charge: EP Level 3 (80-115) MA Intake Visit Data Collection New Patient or Established: Established Patient (seen at [facility] within 3 years) Reason for Visit:: 6 WK R TKA Seen by Clinical Staff ONLY (RN/MA): No Verbal consent obtained for Telemed visit?: No Swager Operator Required: No PCP or OBGYN visit in last 3 months: Yes Hx Now: No Do You Feel Safe at Home: Yes Authorities Contacted: N/A Questionairres Past Medical History Past Medical History Have you ever been diagnosed with any of the following: Neurological Problems Seizures: No Cardiology Problems Congestive Heart Failure: No Varicose Veins: Yes Respiratory Problems Chronic Obstructive Pulmonary Disease (COPD): No Smoking: Yes (20 YEARS) Smoking Cessation Counseling: No Smoking Exposure: Yes Stomache/Intestinal Problems Hepatitis: No Obesity: Yes Genital/Urinary Problems Renal Disease: No Kidney Stones: No Reproductive Problems Previous Pregnancies: Yes Musculoskeletal Problems Arthritis: Yes Endocrine Problems Diabetes Mellitus Type 1: No Diabetes Mellitus Type 2: No Other Problems Hospitalization: Yes (surgery) Shingles: No Blood Transfusions: No Blood Transfusion Reaction: No Anesthesia Reactions: No MRSA: No Chicken Pox: No Cancer: No Subjective Visit Visit for: follow up visit, post op #1 and knee Immunization / Flu Flu Vaccine in the Last 12 Months: No Flu Vaccine Exclusion Criteria: No Exclusion Criteria History of Present Illness Chief complaint: 2 WEEK POST OP RIGHT TKA Patient is a pleasant 64-year-old female with bilateral knee pain. 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
[2025-05-14 10:29] VITALS: BP 124/84; PULSE 95; RESP 18; TEMP 36.6; O2SAT 98; BMI 30.9
--- NOTE | 2025-05-14 10:34 | XR_ITS ---
Examination: AP bilateral knees single view Right knee PA lateral axial 3 views TECHNIQUE: Bilateral AP knees standing single view Right knee PA standing flexion, standing lateral, axial right knee 3 views total 4 views Date and time: May 14, 2025, 1044 hours INDICATIONS: Status post right knee replacement April 05, 2025 FINDINGS: Moderate osteopenia. Total right knee arthroplasty. Satisfactory alignment. No fracture. No loosening of the prosthetic components. No patellar dislocation Moderate narrowing medial lateral joint spaces left knee IMPRESSION: Total right knee arthroplasty with satisfactory alignment
== END 2025-05-14 10:36 | disposition home or self-care (01) ==
PROVIDERS: PCP Nurse Practitioner Family; Referring Provider Nurse Practitioner Family; Supervising Provider Orthopaedic Surgery Adult Reconstructive Orthopaedic Surgery; Visit Provider Orthopaedic Surgery Adult Reconstructive Orthopaedic Surgery
DX: M17.11 Unilateral primary osteoarthritis, right knee (principal); Z96.651 Presence of right artificial knee joint
CPT/HCPCS: 73564; 99213; G0463

== ENCOUNTER 2025-07-06 13:53 | Outpatient (AMB) | payer MEDICARE, MEDICAID, SELFPAY ==
[2025-07-06 14:06] VITALS: BP 134/84; PULSE 82; RESP 18; TEMP 36.6; O2SAT 98; BMI 30.6
--- NOTE | 2025-07-06 14:06 | ORTHONT_ITS ---
Vital signs 07/06/25 14:06 Height 1.57 m Height Method Stated Weight 75.523 kg Weight Measurement Method Standing Scale BMI 30.6 BP 134/84 H Blood Pressure Source Automatic Cuff Blood Pressure Location Right Upper Arm Position Sitting Respiration 18 Pulse 82 Pulse Source Monitor Temp 98 F Temp Source Temporal Artery Scan Pulse Oximetry (%) 98 Oxygen Delivery Method Room Air Med/Allergies Allergies & Medications Allergies No Known Allergies Allergy (Verified 07/06/25 14:07) Medication Reconciliation semaglutide (weight loss) 1.7 mg/0.75 mL subcutaneous pen injector (Wegovy) 1.7 mg subcut QWEEK 03/23/25 [History Confirmed 07/06/25] gabapentin 300 mg capsule 300 mg PO QHS #60 caps 07/06/25 [Rx] meloxicam 7.5 mg tablet 7.5 mg PO QDAY #45 tabs 07/06/25 [Rx] Office Procedures GNS Level of Care Nursing/Assessment Patient Status: Established Patient Nursing Assessment/Reassesment: Medication Reconciliation, Update PMH in EMR and Vital Signs Coordination of Care: Complex Care and Chronic Disease 1-5, Education Complex Pt/Fam, Consent,records obtained, informed consent, Results/Orders obtained and Staff clarify orders Established Patient Charge Established Patient Point Assignment: 95 Established Patient Point Charge: EP Level 3 (80-115) MA Intake Visit Data Collection New Patient or Established: Established Patient (seen at [facility] within 3 years) Reason for Visit:: RIGHT KNEE PAIN, THAT BEGINS AT NIGHT RADIATING FROM MEDIAL AND POSTERIOR, TINGLING AND SHOCKING Seen by Clinical Staff ONLY (RN/MA): No Verbal consent obtained for Telemed visit?: No Manager Of Recruiting Required: No PCP or OBGYN visit in last 3 months: Yes Hx Now: No Do You Feel Safe at Home: Yes Authorities Contacted: N/A Questionairres Past Medical History Past Medical History Have you ever been diagnosed with any of the following: Neurological Problems Seizures: No Cardiology Problems Congestive Heart Failure: No Varicose Veins: Yes Respiratory Problems Chronic Obstructive Pulmonary Disease (COPD): No Smoking: Yes (20 YEARS) Smoking Cessation Counseling: No Smoking Exposure: Yes Stomache/Intestinal Problems Hepatitis: No Obesity: Yes Genital/Urinary Problems Renal Disease: No Kidney Stones: No Reproductive Problems Previous Pregnancies: Yes Musculoskeletal Problems Arthritis: Yes Endocrine Problems Diabetes Mellitus Type 1: No Diabetes Mellitus Type 2: No Other Problems Hospitalization: Yes (surgery) Shingles: No Blood Transfusions: No Blood Transfusion Reaction: No Anesthesia Reactions: No MRSA: No Chicken Pox: No Cancer: No Subjective Visit Visit for: follow up visit and knee Immunization / Flu Flu Vaccine in the Last 12 Months: No Flu Vaccine Exclusion Criteria: No Exclusion Criteria History of Present Illness Chief complaint: KNEE PAIN Personal History Red flag PMH: BMI BMI Counceling provided: Yes Pain Pain level (0-10): 5 Pain duration: AT NIGHT Pain location: inside (medial), anterior and posterior Pain quality: sharp, shocking, electric and tingling Pain timing: night Associated signs & symptoms: numbness Ambulatory data Ambulatory device: none Treatments Improvement with previous injections: No Improvement with PT: No Improvement with NSAIDS: no Review of Systems Review of Systems: All systems negative unless otherwise noted in HPI.
== END 2025-07-06 14:24 | disposition home or self-care (01) ==
LOC: HODSRG 13:53
PROVIDERS: PCP Nurse Practitioner Family; Referring Provider Nurse Practitioner Family; Supervising Provider Orthopaedic Surgery Adult Reconstructive Orthopaedic Surgery; Visit Provider Orthopaedic Surgery Adult Reconstructive Orthopaedic Surgery
DX: M25.561 Pain in right knee (principal); R20.2 Paresthesia of skin; E66.9 Obesity, unspecified; Z68.30 Body mass index [BMI] 30.0-30.9, adult
CPT/HCPCS: 99213; G0463